=== PATIENT | male | born 1955 | race Caucasian/White ===

== ENCOUNTER 2017-09-02 08:23 | Emergency (ER) ==
[2017-09-02 08:30] VITALS: BP 132/82; TEMP 97.7; BMI 28.1
--- NOTE | 2017-09-02 08:45 | ED.PDOC ---
General ED Provider: Dr. BROOKE DELUCA Chief Complaint: Wound Check Stated Complaint: abscess left hand Time Seen by Physician: 08:27 (see with jose g yao RN AT ALL TIMES ) Mode of Arrival: Walk-In Information Source: Patient Exam Limitations: No limitations (SEE PHOTOS FULL ROM OF THE INVOLVED HAND ) Primary Care Provider: SERGEI TAVAREZ Nursing and Triage Documentation Reviewed and Agree: Yes (DOES NOT RECALL INSECT BITE) Does patient meet sepsis criteria?: Yes If yes, has appropriate treatment been initiated?: No (PULLING A PLUG OFF HR BOAT ) System Inflammatory Response Syndrome: Not Applicable Sepsis Protocol: For patient's 13 years and over: Temp is 96.8 and below OR 101 and greater Pulse >90 BPM Resp >20/minute Acutely Altered Mental Status Are patient's symptoms suggestive of a new infection, such as: -Pneumonia -Skin, Soft Tissue -Endocarditis -UTI -Bone, Joint Infection -Implantable Device -Acute Abdominal Infection -Wound Infection -Meningitis -Blood Stream Catheter Infection -Unknown Skin Complaint Exam - Skin/Soft Tissue Complaint/Exam Onset/Duration: 5 DAYS Symptoms Are: Still present Timing: Constant Initial Severity: Moderate Current Severity: Moderate Character: Reports: Redness, Swelling ( SEE PHOTOS), Raised, Painful Alleviating: Reports: None Associated Signs and Symptoms: Denies: Fever, Chills, Itching, Drainage, Bruising, Tenderness, Red streaks, Joint swelling Related Surgical History: Reports: None Recent Exposure to Others w/Similar Symptoms: No Skin Findings: Present: Pustules Joint Tenderness Present: No Differential Diagnoses: Abscess Review of Systems - Review Of Systems Constitutional: Reports: No symptoms Eyes: Reports: No symptoms Ears, Nose, Mouth, Throat: Reports: No symptoms Respiratory: Reports: No symptoms Cardiac: Reports: No symptoms GI: Reports: No symptoms : Reports: No symptoms Musculoskeletal: Reports: No symptoms Skin: Reports: Other (ABSCESS) Neurological: Reports: No symptoms Endocrine: Reports: No symptoms Hematologic/Lymphatic: Reports: No symptoms All Other Systems: Reviewed and Negative Past Medical History - Past Medical History Previously Healthy: Yes Endocrine: Reports: None Cardiovascular: Reports: None Respiratory: Reports: None Hematological: Reports: None Gastrointestinal: Reports: None Genitourinary: Reports: None Neuro/Psych: Reports: None Musculoskeletal: Reports: None Cancer: Reports: None - Surgical History General Surgical History: Reports: None - Family History Family History: Reports: None - Social History Smoking Status: Current every day smoker, Heavy tobacco smoker Hx Substance Use: No Alcohol Screening: Occasionally - Immunizations Tetanus Shot up to Date: Yes (3 yrs ago) Physical Exam - Physical Exam Appearance: Well-appearing, No pain distress, Well-nourished Eyes: JOSE DAVID, EOMI, Conjunctiva clear ENT: Ears normal, Nose normal, Oropharynx normal Respiratory: Airway patent, Breath sounds clear, Breath sounds equal, Respirations nonlabored Cardiovascular: RRR, Pulses normal, No rub, No murmur GI/: Soft, Nontender, No masses, Bowel sounds normal, No Organomegaly Musculoskeletal: Edema (LEFT HAND MILD FULL RANGE OF MOTION OF THE INVOLVED HAND ) Skin: Warm, Dry, Normal color Neurological: Sensation intact, Motor intact, Reflexes intact, Cranial nerves intact, Alert, Oriented Psychiatric: Affect appropriate, Mood appropriate Critical Care Note - Critical Care Note Total Time (mins): 0 Course - Course Vital Signs: Temp Pulse Resp BP Pulse Ox 09/02/17 08:23 97.7 F 84 16 132/82 97 Departure - Departure Time of Disposition: 09:00 Disposition: HOME SELF-CARE Discharge Problem: Abscess of left hand Instructions: Abscess (ED) Condition: Good Pt referred to PMD for follow-up: Yes IPMP verified?: No Additional Instructions: Please call your Family Physician as soon as possible to schedule a follow-up appointment. Allergies/Adverse Reactions: Allergies Penicillins Adverse Reaction (Verified 09/02/17 08:32) Home Medications: Ambulatory Orders Amlodipine Besylate 5 mg PO DAILY 09/02/17 Aspirin [Lilly Chewable] 81 mg PO DAILY 09/02/17 Atorvastatin Calcium 40 mg PO DAILY 09/02/17 Carvedilol 6.25 mg PO BID 09/02/17 Cholecalciferol (Vitamin D3) [Vitamin D3] 1,000 unit PO DAILY 09/02/17 Clopidogrel Bisulfate [Clopidogrel] 75 mg PO DAILY 09/02/17 Ibuprofen 200 mg PO PRN PRN 09/02/17 Disposition Discussed With: Patient
[2017-09-02] MEDS ORDERED: ROCEPHIN IM STA (08:47)
[2017-09-02] MEDS ORDERED: LIDOCAINE HCL 1% SDV IM STA (08:47)
== END 2017-09-02 09:20 | disposition home or self-care (01) ==
LOC: ED 08:23
DX: L02.512 Cutaneous abscess of left hand (principal); F17.210 Nicotine dependence, cigarettes, uncomplicated
CPT/HCPCS: 96372; 99282